=== PATIENT | male | born 1940 | race Caucasian/White ===

== ENCOUNTER 2018-08-04 12:18 | Outpatient (CLI) | payer OTHER | END 2018-08-04 23:59 | disposition home or self-care (01) | LOC: CARD DIAG 12:18 | PROVIDERS: ATTEND Orthopaedic Surgery | DX: I34.0 Nonrheumatic mitral (valve) insufficiency (principal); I11.9 Hypertensive heart disease without heart failure; I25.9 Chronic ischemic heart disease, unspecified; Z95.1 Presence of aortocoronary bypass graft; Z87.891 Personal history of nicotine dependence | CPT/HCPCS: 93306 ==